=== PATIENT | female | born 1945 | race Caucasian/White ===

== ENCOUNTER 2018-03-04 10:51 | Day surgery (SDC) | payer MEDICARE ==
[2015-11-20 11:21] VITALS: BMI 37.0
[2018-02-23 11:06] VITALS: RESP 18
[2018-03-04] MEDS ORDERED: Propofol 10 mg/ml Inj (20 ML) ONE (12:14)
[2018-03-04] MEDS ORDERED: Midazolam 2 MG/2 ML VIAL ONE (12:14)
[2018-03-04] MEDS ORDERED: Lidocaine 4% (Laryng-O-Jet) Kit MM ONE (12:15)
[2018-03-04] MEDS ORDERED: cefOXitin IV 1 gm in Dextrose 0 GM/0 ML BAG IVPB ONE (12:15)
[2018-03-04] MEDS ORDERED: Ferric Subsulfate Sol(60 mL) ONE (12:15)
[2018-03-04] MEDS ORDERED: ceFAZolin IV 1 gm in Dextrose 0 GM/0 ML BAG IVPB ONE (12:15)
[2018-03-04] MEDS ORDERED: ePHEDrine 50 mg/ml Inj ONE (12:16)
[2018-03-04] MEDS ORDERED: Etomidate 20 mg/10ml Inj IV ONE (12:16)
[2018-03-04] MEDS ORDERED: Dexamethasone 4 mg/1 ml ONE (12:57)
--- NOTE | 2018-03-04 13:12 | CP.SDSHP ---
Same Day Surgery H & P - Allergies Allergies: Allergies No Known Allergies Allergy (Verified 02/23/18 11:21) Short Stay Discharge - Short Stay Discharge Admitting Diagnosis/Reason for Visit: N95.0 Additional Instructions (Diet, Activity): Nothing per vagina no heavy lfiting motrin as needed follow up in office 2 weeks
[2018-03-04 15:21] VITALS: BP 150/94; PULSE 65; TEMP 98
[2018-03-04 15:30] VITALS: O2SAT 95
--- NOTE | 2018-03-05 01:34 | OP ---
PROCEDURE DATE: 03/04/2018 PREOPERATIVE DIAGNOSIS: Postmenopausal bleeding. POSTOPERATIVE DIAGNOSIS: Postmenopausal bleeding. OPERATION PERFORMED: Hysteroscopy and D and C. SURGEON: Belen Bowens MD ANESTHESIA: General. ANESTHESIA ADMINISTERED BY: Dr. Sesay. ESTIMATED BLOOD LOSS: Minimal. The patient was straight catheterized prior to starting procedure. INTRAVENOUS FLUIDS: The patient received 300 mL of D5 LR intraoperatively. OPERATIVE FINDINGS: Showed normal external female genitalia. Urethra normal. Cervix was smooth, atrophic, uterus anteverted. No adnexal masses. HYSTEROSCOPIC FINDINGS: Both ostia were visualized, atrophic endometrium. No foreign lesions were identified. DESCRIPTION OF PROCEDURE: After informed consent was obtained, the patient was taken to the operating room where she was given general anesthesia. She was then prepped and draped in a normal sterile fashion. A weighted speculum was then inserted into the vagina. Cervix was visualized, grasped with a single-tooth tenaculum. The cervix was gently dilated. The hysteroscope was inserted into the uterine cavity. The cavity was surveyed with the findings noted above. A sharp curettage was then performed. Endometrial curettings were sent to pathology. The patient tolerated the procedure well. All instruments were removed from the vagina, and the patient was awakened from the general anesthesia and taken to the recovery room in awake and stable condition. Belen Bowens MD
== END 2018-03-04 15:35 | disposition home or self-care (01) ==
LOC: H.OPSURG 10:51
PROVIDERS: ATTEND Obstetrics & Gynecology Gynecology
DX: N95.0 Postmenopausal bleeding (principal); I10 Essential (primary) hypertension; M19.90 Unspecified osteoarthritis, unspecified site; E66.9 Obesity, unspecified; K21.9 Gastro-esophageal reflux disease without esophagitis
CPT/HCPCS: 58558; 88305; J1100; J1885; J2001; J2250; J2405; J2704; J3010